=== PATIENT | female | born 1985 | race Caucasian/White ===

== ENCOUNTER → 2016-07-28 | Outpatient (CLI) | payer OTHER ==
--- NOTE | 2016-07-28 13:49 | US ---
July 28, 2015 Dear Providers at the Center [facility], Thank you for requesting consultation and a follow up ultrasound for your patient, Mrs. Norman wood. As you know, Judi is a 31 year-old 1, para 0. Her due date is 10/18/16 by 12 week u ltrasound. Her current gestational age based on this dating is 28 weeks 2 days. She is seen today f or evaluation of growth and to look at the placenta amnion interface as there were concerns for separ ation. She denies bleeding or leakage of fluid. She reports good movement. She had reassurin g NIPT. ULTRASOUND Number of fetuses: 1 Placental location: Anterior. The amnion now appears fused and I do not appreciate any free sheets. The baby is also mobile without fixation. presentation: Breech Heart Rate: 142 bpm Cervix: 3.8 cm viewed transabdominally Maximum Vertical Pocket: 4.7 cm Measurements: Biparietal diameter: 70 mm 28 weeks, 3 days Head circumference: 259 mm 28 weeks, 2 days Abdominal circumference: 242 mm 28 weeks, 4 days Femur length: 51 mm 27 weeks, 2 days Humerus length: 48 mm 28 weeks, 1 days Transcerebellar diameter: 36 mm 29 weeks, 6 days Average ultrasound age: 28 weeks, 1 days Estimated weight: 1158 gm weight percentile: 27 % ANATOMY anatomy was previously assessed. Today the following structures were visualized and appeared n ormal: Cavum septum pellucidum, lateral ventricle, cerebellum, stomach, bilateral kidneys, bladder, limited views of the heart, and profile. IMPRESSION: 1. Intrauterine at 28 weeks, 2 days; ANTWON of 10/18/16. 2. growth is appropriate size for dates. 3. anatomy was previously assessed and today's ultrasound continues to provide reassurance of normal appearing anatomy. 4. Normal amniotic fluid volume RECOMMENDATIONS: I was pleased to review today's ultrasound with your patient. I reassured her that growth is normal at the 27%ile for this gestational age. The amniotic fluid volume is normal. We performed a review of the anatomy which was limited by position and acoustic shadowing, but no overt abnorma lities were noted. Additionally, I did not appreciate any concern for amnion separation or ent anglement. Future ultrasound and consultation is available at your discretion. Thank you for allowing us the opportunity to evaluate your patient. Should you have any further ques tions or concerns please do not hesitate to contact me. Approximately 15 minutes were spent with the patient and 10 minutes were spent in face to face consu ltation. Myranda Mcelroy MD [employer] Maternal Medicine Diagnosis Department of Obstetrics & Gynecology [facility]
--- NOTE | 2016-07-28 15:10 | US ---
Followup Obstetric Ultrasound Indication: Followup possible amnion/chorion separation along the left side of the gestational sac. [facility] growth and anatomy. Comparison: May 26, 2016 Dr. Myranda Mcelroy was present during imaging. Findings: Biometry: Average gestational age by ultrasound: 28 weeks 1.0 day with EDC by ultrasound of October 19, 2016 Estimated gestational age by LMP: 28 weeks 2 days with an EDC by LMP of October 18, 2016. The amnion/chorion separation along the left-side of the gestational sac inferiorly at the marginal e dge of the placenta has decreased since the prior study. There is no evidence of amniotic band. Number: 1 Presentation: Breech Placental location: Anterior without previa. Cervix: 3.8 cm from transabdominal measurement. Amniotic fluid maximum vertical pocket: 4.7 cm Biparietal diameter: 20 weeks 3 days, 7.04 cm Head circumference: 28 weeks 2 days, 25.90 cm Abdominal circumference: 28 weeks 4 days, 24.18 cm Femur length: 27 weeks 2 days, 5.07 cm Humerus length: 28 weeks 1.0 day, 4.70 cm Transcerebellar diameter: 29 weeks 6 days, 3.58 to cm Estimated weight is 1158 gms ( 2 pounds 9 ounces ). The estimated weight is at the 27th p ercentile based on LMP. On the previous study, the fetus was also at the 27th percentile for weight w ith respect to LMP. Anatomy Survey: Supratentorial brain: Normal Posterior fossa: Normal Nose and lips: Normal Profile: Normal Heart: Four chamber heart with normal interventricular septum heart rate of 142 bpm. RVOT: Normal LVOT: Normal Stomach: Normal Kidneys: Normal, no pyelectasis Bladder: Normal Impression: 1. Living dumont in breech presentation. 2. Size concordant with dates as detailed above. 3. Unremarkable anatomy. No anomalies detected. 4. Interval significant decrease in focal amnion/chorion separation along the left side of the placen ta margin inferiorly.
== END ==
LOC: FIMAGING 12:19
PROVIDERS: ATTEND Advanced Practice Midwife
DX: Z34.03 Encounter for supervision of normal first pregnancy, third trimester (principal); Z3A.28 28 weeks gestation of pregnancy

== ENCOUNTER → 2016-10-23 | Outpatient (CLI) | payer OTHER | LOC: FIMAGING 13:54 | PROVIDERS: ATTEND Advanced Practice Midwife | DX: Z34.03 Encounter for supervision of normal first pregnancy, third trimester (principal); Z3A.40 40 weeks gestation of pregnancy ==

== ENCOUNTER 2016-10-31 11:30 | Inpatient (IN) | payer OTHER ==
[2016-10-31] MEDS ORDERED: ALBUMIN 5% 500 ML BOTTLE IV ONE (11:49)
[2016-10-31] MEDS ORDERED: METHYLERGONOVINE MAL 0.2 MG/ML INJ ONE (11:50)
[2016-10-31 12:03] LABS: ADD DIFF? NO; ADD SCAN? NO
[2016-10-31] MEDS ORDERED: fentaNYL 100 MCG/2 ML INJ ONE (12:04)
[2016-10-31] MEDS ORDERED: LIDOCAINE 1% 30 ML SDV ONE (12:06)
[2016-10-31] MEDS ORDERED: OXYTOCIN 10 UNIT/ML VIAL ONE (12:14)
[2016-10-31] MEDS ORDERED: SIMETHICONE 80 MG TAB CHEW PO PRN (12:24)
[2016-10-31] MEDS ORDERED: HYDROCODONE/APAP 5/325 TAB PO PRN (12:24)
[2016-10-31] MEDS ORDERED: ACETAMINOPHEN 325 MG TAB PO PRN (12:24)
[2016-10-31] MEDS ORDERED: HYDROCORTISONE 0.5% CREAM TP PRN (12:24)
[2016-10-31] MEDS ORDERED: MISOPROSTOL 200 MCG TAB PO ONE (12:27)
[2016-10-31] MEDS ORDERED: METHYLERGONOVINE MAL 0.2 MG/ML INJ IM ONE (12:28)
[2016-10-31] MEDS ORDERED: OXYTOCIN/RINGERS LACTATE 1,000 ML IV SCH (12:30)
--- NOTE | 2016-10-31 12:36 | PDGENHP ---
History and Physical - Chief Complaint 31 y.o. s/p after protracted labor with hemorrhage - History of Present Illness 31 y.o. s/p after protracted labor and admitted to L&D for hemorrhage. History Information - Allergies/Home Medication List Allergies/Adverse Reactions: diphenhydramine [From Benadryl] Allergy (Verified 10/31/16 12:23) I have personally reviewed and updated: family history, medical history, social history, surgical history - Past Medical History no pertinent PMH - Surgical History Reports: no pertinent surgical hx - Social History Smoking Status: Never smoked Alcohol Use: None Drug Use: None Review of Systems Constitutional: Reports: chills, diaphoresis, malaise EENMT: Reports: no symptoms Cardiac: Reports: lightheadedness, palpitations Respiratory: Reports: no symptoms Gastrointestinal: Reports: no symptoms Genitourinary: Reports: no symptoms Muscolosketal: Reports: no symptoms Skin: Reports: change in color Neurological: Reports: weakness Hematologic/Lymphatic: Reports: no symptoms Immunologic/Allergy: Reports: no symptoms Physical Exam Physical Exam: Patient appears pale and diaphoretic. Cooperative with exam. Dr. Raad Mcnair present and performed complete pelvic exam. Constitutional: uncomfortable Eyes: PERRL Ears, Nose, Mouth, Throat: moist mucous membranes, hearing normal Cardiovascular: regular rate and rhythym, no murmur, rub, or gallop Respiratory: no respiratory distress Gastrointestinal: normoactive bowel sounds, soft, non-tender abdomen Genitourinary: no bladder fullness Skin: other (pale and diaphoretic.) Neurologic: AAOx3 Psychiatric: interacting appropriately Lab Data & Imaging Review 10/31/16 11:42 Assessment & Plan Assessment: 31 y.o. s/p following protracted labor and hemorrhage Plan: Admit patient to L&D. Mcgill catheter placed to remain in place overnight. Cytotec 800 mcg PO, Methergine 0.2mg administered IM and Pitocin 40 u to IV and infused rapidly. CBC and ABO/RH collected. Repeat CBC in 4 hours. Continue IV with Pitocin 20U to IV and methergine 0.2 mg PO Q4H x 6 doses. Plan to keep patient inpatient overnight and anticipate discharge to home tomorrow if stable.
[2016-10-31] MEDS ORDERED: fentaNYL 100 MCG/2 ML INJ IVP ONE (12:44)
[2016-10-31] MEDS: METHYLERGONOVINE MAL 0.2 MG TAB PO SCH ×3 (12:58→20:58)
[2016-10-31 13:07] LABS: ADD MORPH? NO
[2016-10-31 13:47] LABS: % IMMATURE GRANULYOCYTES 0.6 % (0.0-1.1); ATYPICAL LYMPHOCYTE FLAG 10 (0-99); LEFT SHIFT FLG 70 (0-99); PLATELET CLUMPS FLAG 10 (0-99)
[2016-10-31 13:51] LABS: ADD DIFF? NO; ADD MORPH? NO; ADD SCAN? NO; ATYPICAL LYMPHOCYTE FLAG 10 (0-99); FRAGMENT RBC FLAG 0 (0-99); HEMOGLOBIN 9.5 g/dL (12.6-16.3); LEFT SHIFT FLG 40 (0-99); LIPEMIA HEMOLYSIS FLAG 90 (0-99); MEAN CELL HEMOGLOBIN 34.2 pg (27.9-34.1); MEAN CELL HEMOGLOBIN CONCENTR. 36.5 g/dL (32.4-36.7); MEAN CELL VOLUME 93.5 fL (81.5-99.8); MEAN PLATELET VOLUME 10.1 fL (8.7-11.7); PLATELET CLUMPS FLAG 0 (0-99); PLATELET COUNT 260 10^3/uL (150-400); RED BLOOD CELL COUNT 2.78 10^6/uL (4.18-5.33); RED CELL DISTRIBUTION WIDTH 12.9 % (11.5-15.2)
[2016-10-31] MEDS: IBUPROFEN 600 MG TAB PO PRN (16:37)
[2016-10-31] MEDS: DOCUSATE SODIUM 100 MG CAP PO PRN (16:38)
[2016-10-31] MEDS ORDERED: GENTAMICIN PHARMACY TO DOSE MISC SCH (17:30)
--- NOTE | 2016-10-31 17:37 | SOAPPROG ---
SOAP Progress Note Assessment/Plan: Assessment: 31 y.o. female s/p with hemorrhage PPD #0. Received phone call from her nurse and notified provider that patient's temperature was 102.3. Discussed plan of care with Dr. Bowser. Plan: Patient to remain as inpatient overnight. Will initiate treatment for sepsis with antibiotics of Amp/ Gent, CBC and blood cultures. Will continue IVF. 10/31/16 17:33 Subjective: Patient is awake and alert. Patient reports her BP is usually 90/60. Patient is eating and drinking well and speaking clearly. Objective: Vital Signs Temp Pulse Resp BP Pulse Ox 39.1 C H 109 H 18 81/54 L 95 10/31/16 16:45 10/31/16 16:45 10/31/16 15:00 10/31/16 16:45 10/31/16 15:00 Laboratory Results 10/31/16 13:35 10/30/16 10/31/16 11/01/16 05:59 05:59 05:59 Output Total 3000 Balance -3000 - Time Spent With Patient Time Spent With Patient: 10 minutes - Pending Discharge Pending Discharge Within 24 Hours: No Pending Discharge Within 48 Hours: Yes Pending Discharge Date: 11/02/16 Pending Discharge Time: 11:00 Physical Exam - Physical Exam General Appearance: WD/WN, alert, mild distress EENT: normal ENT inspection Neck: non-tender, full range of motion, normal inspection Respiratory: lungs clear, normal breath sounds Cardiac/Chest: regular rate, rhythm Abdomen: non-tender, soft Pelvic Exam: normal external exam Rectal: deferred Back: Normal inspection Skin: diaphoresis Lymphatic: no adenopathy Extremities: normal range of motion, non-tender, normal inspection Neuro/Psych: alert, normal mood/affect, oriented x 3 ICD10 Worksheet Patient Problems: Problems Problem Status Onset hemorrhage Acute - ICD10 Problem Qualifiers (1) hemorrhage Qualifiers: hemorrhage type: P
[2016-10-31] MEDS: AMPICILLIN SODIUM 2 GM in NS 100 ML IV SCH (18:27)
[2016-10-31 19:01] LABS: ANION GAP 4 mEq/L (8-16); CALCIUM 8.5 mg/dL (8.5-10.4); CARBON DIOXIDE 23 mEq/l (22-31); CHLORIDE 101 mEq/L (97-110); CREATININE 0.6 mg/dL (0.6-1.0); GLOMERULAR FILTRATION RATE > 60; GLUCOSE 100 mg/dL (70-100); POTASSIUM 3.9 mEq/L (3.5-5.2); SODIUM 128 mEq/L (134-144)
[2016-10-31] MEDS: GENTAMICIN SULFATE IV SCH (19:28)
[2016-10-31] MEDS: D5W IV SCH (19:28)
[2016-10-31 20:01] LABS: % IMMATURE GRANULYOCYTES 0.7 % (0.0-1.1); ABSOLUTE IMMATURE GRANULOCYTES 0.11 10^3/uL (0.00-0.10); ADD DIFF? NO; ADD MORPH? YES; ADD SCAN? NO; ATYPICAL LYMPHOCYTE FLAG 0 (0-99); FRAGMENT RBC FLAG 0 (0-99); HEMATOCRIT 18.4 % (38.0-47.0); LEFT SHIFT FLG 30 (0-99); MEAN CELL HEMOGLOBIN 34.3 pg (27.9-34.1); MEAN CELL VOLUME 91.5 fL (81.5-99.8); MEAN PLATELET VOLUME 10.3 fL (8.7-11.7); PLATELET CLUMPS FLAG 0 (0-99); PLATELET COUNT 189 10^3/uL (150-400); RED BLOOD CELL COUNT 2.01 10^6/uL (4.18-5.33); RED CELL DISTRIBUTION WIDTH 12.6 % (11.5-15.2)
[2016-10-31 20:03] LABS: HEMOGLOBIN 6.9 g/dL (12.6-16.3); LIPEMIA HEMOLYSIS FLAG 100 (0-99); MEAN CELL HEMOGLOBIN CONCENTR. 37.5 g/dL (32.4-36.7)
[2016-10-31 20:56] LABS: PLATELET ESTIMATE ADEQUATE (ADEQ); ROULEAUX PRESENT
[2016-11-01] MEDS: AMPICILLIN SODIUM 2 GM in NS 100 ML IV SCH ×4 (00:12→18:08)
[2016-11-01] MEDS: IBUPROFEN 600 MG TAB PO PRN ×3 (00:17→17:52)
[2016-11-01] MEDS: METHYLERGONOVINE MAL 0.2 MG TAB PO SCH ×3 (00:17→08:14)
--- NOTE | 2016-11-01 09:50 | SOAPPROG ---
SOAP Progress Note Assessment/Plan: Assessment: 31 y.o. female s/p with hemorrhage PPD #1. Recovering well and has been afebrile overnight. Patient is severely anemic with HCT of 18. Plan: Continue antibiotics for complete 24 hours. Continue to monitor for sepsis. Discussed plan of care with Dr. DENIS and will order 2 units of PRBCs to be transfused today to assist with anemia. . Routine care and orders. 10/31/16 17:33 11/01/16 09:46 Subjective: Patient reports feeling very fatigued. well. Good pain control and minimal vaginal bleeding. Mcgill remains in place and patient diuresing well. Eating and drinking well without nausea or vomiting. Has not been out of bed. Appropriate mood with good support. Objective: Vital Signs Temp Pulse Resp BP Pulse Ox 36.1 C 77 16 86/53 L 100 11/01/16 08:45 11/01/16 08:45 11/01/16 08:45 11/01/16 08:45 11/01/16 08:45 Laboratory Results 11/01/16 06:09 10/31/16 18:20 10/31/16 11/01/16 11/02/16 05:59 05:59 05:59 Intake Total 1650 Output Total 7000 Balance -5350 - Time Spent With Patient Time Spent With Patient: 20 minutes - Pending Discharge Pending Discharge Within 48 Hours: Yes Pending Discharge Date: 11/03/16 Pending Discharge Time: 11:00 Physical Exam - Physical Exam General Appearance: WD/WN, alert, no apparent distress, other (fatigued) EENT: normal ENT inspection Neck: full range of motion, normal inspection Respiratory: lungs clear, normal breath sounds Cardiac/Chest: regular rate, rhythm Abdomen: non-tender, soft Pelvic Exam: normal external exam Rectal: deferred Back: Normal inspection Skin: normal color, warm/dry Lymphatic: no adenopathy Extremities: normal range of motion, non-tender, normal inspection Neuro/Psych: alert, normal mood/affect, oriented x 3 ICD10 Worksheet Patient Problems: Problems Problem Status Onset hemorrhage Acute - ICD10 Problem Qualifiers (1) hemorrhage Qualifiers: hemorrhage type: P
[2016-11-01] MEDS: D5W IV SCH (19:45)
[2016-11-01] MEDS: GENTAMICIN SULFATE IV SCH (19:45)
[2016-11-02] MEDS: IBUPROFEN 600 MG TAB PO PRN ×4 (01:12→21:15)
[2016-11-02] MEDS: AMPICILLIN SODIUM 2 GM in NS 100 ML IV SCH ×2 (01:25→06:55)
[2016-11-02 09:18] LABS: % IMMATURE GRANULYOCYTES 2.2 % (0.0-1.1); ABSOLUTE IMMATURE GRANULOCYTES 0.22 10^3/uL (0.00-0.10); ADD DIFF? NO; ADD MORPH? NO; ADD SCAN? NO; ATYPICAL LYMPHOCYTE FLAG 0 (0-99); FRAGMENT RBC FLAG 0 (0-99); HEMATOCRIT 21.3 % (38.0-47.0); HEMOGLOBIN 7.7 g/dL (12.6-16.3); LEFT SHIFT FLG 20 (0-99); LIPEMIA HEMOLYSIS FLAG 90 (0-99); MEAN CELL HEMOGLOBIN 33.8 pg (27.9-34.1); MEAN CELL HEMOGLOBIN CONCENTR. 36.2 g/dL (32.4-36.7); MEAN CELL VOLUME 93.4 fL (81.5-99.8); MEAN PLATELET VOLUME 9.8 fL (8.7-11.7); PLATELET CLUMPS FLAG 0 (0-99); PLATELET COUNT 178 10^3/uL (150-400); RED BLOOD CELL COUNT 2.28 10^6/uL (4.18-5.33); RED CELL DISTRIBUTION WIDTH 13.7 % (11.5-15.2)
--- NOTE | 2016-11-02 09:50 | OBGCSDC ---
General Delivery Information - General Info : 1 Para: 1 Delivery Date: 10/31/16 Delivery Time: 02:15 Admission Date: 10/31/16 Labs: Patient ABO/Rh A POSITIVE 10/31/16 11:42 Hct 21.3 % (38.0-47.0) L 11/02/16 08:40 Vaginal - Diagnosis IUP (Weeks): 39 Labor: Spontaneous - Operations/Procedures Delivery Type: Spontaneous (Delivered at [facility] and transferred to [facility] d/t [facility].) Discharge Information - Discharge Information Discharge Medications: Ibuprofen, Vitamins, Vicodin Complications: hemorrhage Condition: Good Instruction/Follow Up: See Instruction Sheet (1 week f/u at center) Discharge Physician/CNM: Tamar Chadwick Discharge Date: 11/02/16 Dictated: No
[2016-11-02] MEDS: IRON POLYSAC/IRON HEME 28 MG TAB PO SCH ×2 (12:13→21:15)
[2016-11-02] MEDS: DOCUSATE SODIUM 100 MG CAP PO PRN (21:15)
[2016-11-03] MEDS: IBUPROFEN 600 MG TAB PO PRN (06:46)
--- NOTE | 2016-11-03 08:01 | OBGCSDC ---
General Delivery Information - General Info : 1 Para: 1 Delivery Date: 10/31/16 Delivery Time: 02:15 Admission Date: 10/31/16 Labs: Patient ABO/Rh A POSITIVE 10/31/16 11:42 Hct 21.3 % (38.0-47.0) L 11/02/16 08:40 Vaginal - Diagnosis Labor: Spontaneous - Operations/Procedures Delivery Type: Spontaneous (Delivered at [facility] and transferred to [facility] d/t PPH.) Discharge Information - Discharge Information Discharge Medications: Ibuprofen, Iron, Vitamins, Vicodin Complications: hemorrhage Condition: Good Instruction/Follow Up: Two Weeks, Six Weeks Discharge Physician/CNM: Tamar Chadwick Discharge Date: 11/03/16 Dictated: No
[2016-11-03 09:02] VITALS: BP 105/65; PULSE 86; RESP 16; TEMP 98.4; O2SAT 98
[2016-11-03] MEDS: IRON POLYSAC/IRON HEME 28 MG TAB PO SCH (10:36)
== END 2016-11-03 13:00 | disposition home or self-care (01) | DRG 776 ==
LOC: FLD 11:30 → OBSVTOIN 15:48 → FOB 15:50
PROVIDERS: ADMIT Obstetrics & Gynecology; ATTEND Obstetrics & Gynecology
PROC: 30233N1 Transfusion of Nonautologous Red Blood Cells into Peripheral Vein, Percutaneous Approach (ICD-10-PCS; principal; 2016-10-31)
DX: O72.2 Delayed and secondary postpartum hemorrhage (principal); O90.81 Anemia of the puerperium
CPT/HCPCS: G0463; J0290; J2210; J3010; P9016; P9041

== ENCOUNTER → 2017-01-15 | Outpatient (CLI) | payer OTHER | LOC: BMCIMAGING 12:22 | PROVIDERS: ATTEND Family Medicine | DX: M79.89 Other specified soft tissue disorders (principal) ==